=== PATIENT | female | born 1955 | race Caucasian/White ===

== ENCOUNTER 2020-11-30 18:04 | Emergency (ER) | payer OTHER ==
--- NOTE | 2020-11-30 18:27 | EDM.PDOC ---
ED HPI GENERAL MEDICAL PROBLEM - General Chief Complaint: Upper Extremity Injury/Pain Stated Complaint: HURT RIGHT ARM Time Seen by Provider: 11/30/20 18:15 Source of Information: Reports: Patient History Limitations: Reports: No Limitations - History of Present Illness INITIAL COMMENTS - FREE TEXT/NARRATIVE: Vicky is a 65-year-old female presenting to the ED for evaluation of injuries that occurred when she slipped and fell on the ice tonight. Patient was outside walking her dog when she slipped on the ice landing on outstretched right hand. She did strike her face breaking her glasses and causing a laceration to her right eyebrow. She denies any loss of consciousness. No numbness and tingling in the hand. - Related Data Allergies Allergy/AdvReac Type Severity Reaction Status Date / Time No Known Allergies Allergy Verified 11/30/20 18:12 Home Meds: Home Meds Meloxicam [Mobic] 7.5 mg PO DAILY PRN 11/30/20 [History] Past Medical History HEENT History: Reports: Impaired Vision Musculoskeletal History: Reports: Osteoporosis Social & Family History - Tobacco Use Tobacco Use Status *Q: Never Tobacco User - Caffeine Use Caffeine Use: Reports: Coffee - Recreational Drug Use Recreational Drug Use: No Review of Systems - Review of Systems Review Of Systems: See Below Constitutional: Reports: No Symptoms Eyes: Reports: No Symptoms, Other (Small laceration in the right upper eyelid measuring 0.3 cm) Ears: Reports: No Symptoms Nose: Reports: No Symptoms Mouth/Throat: Reports: No Symptoms Respiratory: Reports: No Symptoms Cardiovascular: Reports: No Symptoms GI/Abdominal: Reports: No Symptoms Genitourinary: Reports: No Symptoms Musculoskeletal: Reports: Joint Pain (Right wrist pain), Joint Swelling (Right wrist swelling and ecchymosis) Skin: Reports: No Symptoms Neurological: Reports: No Symptoms Psychiatric: Reports: No Symptoms ED EXAM, GENERAL - Physical Exam Exam: See Below Exam Limited By: No Limitations General Appearance: Alert, No Apparent Distress Eye Exam: Bilateral Eye: EOMI, PERRL Head: Facial Swelling (Swelling of the right eyelid), Other (0.3 cm laceration right upper eyebrow/eyelid. No active bleeding. Superficial laceration on the bridge of the nose.) Neck: Normal Inspection, Supple, Non-Tender, Full Range of Motion Peripheral Pulses: 2+: Radial (L), Radial (R) Extremities: Joint Swelling (Swelling of the distal radius and ulna), Limited Range of Motion (Limited range of motion of the wrist) Neurological: Alert, Oriented, Normal Cognition, No Motor/Sensory Deficits Psychiatric: Normal Affect, Normal Mood Skin Exam: Warm, Dry, Ecchymosis (Dorsal right wrist), Wound/Incision (0.3 cm laceration right upper eyelid) ED TRAUMA EXTREMITY PROCEDURES - Laceration/Wound Repair Face Lac/Wound Length In cm: 0.3 (Upper right eyelid, nongapping.) Appearance: Superficial Distal NVT: Neuro & Vascular Intact Skin Prep: Chlorhexidine (Hibiciens) Exploration/Debridement/Repair: Wound Explored, In a Bloodless Field Closed With: Dermabond - Splinting Right Upper Extremity Pre-Procedure NV Status: Normal Post-Procedure NV Status: Normal Splint Material: Fiberglass Splint Design: Sugar Tong Applied & Form Fitted By: Provider Provider Post-Splint Application NV Check: NV Status Normal, Good Position Complications: No Course - Vital Signs Last Recorded V/S: Last Vital Signs Temp 36.6 C 11/30/20 18:14 Pulse 75 11/30/20 18:14 Resp 16 11/30/20 18:14 BP 149/50 H 11/30/20 18:14 Pulse Ox 99 11/30/20 18:14 - Orders/Labs/Meds Orders: Active Orders 24 hr Category Date Time Status Wrist Comp Min 3V Rt [CR] Stat Exams 11/30/20 18:15 Ordered - Re-Assessments/Exams Free Text/Narrative Re-Assessment/Exam: 11/30/20 18:52 Vicky is a 65-year-old female who fell on the ice while walking her dog this evening. She sustained a Colles' fracture to the right wrist with a Salter-Tarango type II fracture of the distal radius with minimal angulation and distal ulnar styloid fracture. She was placed in a sugar tong splint and sling. We will put her on Tylenol for pain control. I will arrange for her to follow-up with Dr. Ga in the clinic. As there was minimal angulation, there was nothing to reduce. The superficial laceration to the right upper eyelid was closed with Dermabond. At this time she is suitable for discharge home in satisfactory condition. Indications return to the ED were discussed. Departure - Departure Time of Disposition: 18:57 Disposition: Home, Self-Care 01 Condition: Good Clinical Impression: Fracture, Colles, right, closed - Discharge Information *PRESCRIPTION DRUG MONITORING PROGRAM REVIEWED*: Not Applicable *COPY OF PRESCRIPTION DRUG MONITORING REPORT IN PATIENT [place]: Not Applicable Instructions: Cast or Splint Care, Adult, [id number], Colles Fracture Referrals: PCP,None [Primary Care Provider] - Care Plan Goals: I would recommend taking Tylenol for pain relief. I would elevate the wrist above the level of the heart for the next 48 hours to help reduce the swelling. Wear the sling when up and active. No need to protect the splint from getting wet so use a plastic bag when showering. I have sent a consult through for you to see Dr. Ga which will likely occur early next week when the splint is removed and a cast is applied. We need to have the swelling subside before applying the cast otherwise your wrist will "move around "inside the cast once the swelling goes down. If there is any signs of increasing numbness or tingling, increasing pain, or blueness of the fingers please return to the ED as soon as possible. The Dermabond on your eyelid will act like a scab and will fall off over the next 5 to 7 days. Please do not pick at it. It can get wet and it typically will not dissolve. Should you develop any significant headache or changes in your neurologic status also please contact us and return to the ED. Good luck with your recovery. Sepsis Event Note (ED) - Focused Exam Vital Signs: Vital Signs Temp Pulse Resp BP Pulse Ox 11/30/20 18:14 36.6 C 75 16 149/50 H 99 - Problem List & Annotations (1) Fracture, Colles, right, closed SNOMED Code(s): 278824341 Code(s): S52.531A - COLLES' FRACTURE OF RIGHT RADIUS, INIT FOR CLOS FX Status: Acute Priority: Medium Current Visit: Yes Qualifiers: Encounter type: initial encounter Qualified Code(s): S52.531A - Colles' fracture of right radius, initial encounter for closed fracture - Problem List Review Problem List Initiated/Reviewed/Updated: Yes - My Orders Last 24 Hours: My Active Orders 11/30/20 18:15 Wrist Comp Min 3V Rt [CR] Stat - Assessment/Plan Last 24 Hours: My Active Orders 11/30/20 18:15 Wrist Comp Min 3V Rt [CR] Stat
--- NOTE | 2020-12-01 09:12 | CR ---
Wrist Comp Min 3V Rt CLINICAL HISTORY: Fall, pain FINDINGS: There is a comminuted impaction fracture of the distal radius. There is also displaced fracture of the ulnar styloid tip. There is some osteophytic change in the carpal junctions. Impression: Comminuted impacted fracture distal radius and fracture of the ulnar styloid tip. Osteoarthritis
== END 2020-11-30 19:10 | disposition home or self-care (01) ==
LOC: JP.ED 18:04
DX: S52.531A Colles' fracture of right radius, initial encounter for closed fracture (principal); S52.611A Displaced fracture of right ulna styloid process, initial encounter for closed fracture; S01.111A Laceration without foreign body of right eyelid and periocular area, initial encounter; S01.21XA Laceration without foreign body of nose, initial encounter; S60.211A Contusion of right wrist, initial encounter; W00.0XXA Fall on same level due to ice and snow, initial encounter
CPT/HCPCS: 12011; 29105; 29125; 73110-26-RT; 73110-RT; 99283; 99283-25